=== PATIENT | female | born 1960 | race Caucasian/White ===

== ENCOUNTER 2019-02-15 11:29 | Emergency (ER) | payer SELFPAY ==
[~2019-02-15] VITALS: Ht 154.9 cm; Wt 59.0 kg
[2019-02-15 11:42] VITALS: BP 127/97
--- NOTE | 2019-02-15 12:15 | NUR ---
AFTER EXAM BY PA PT GIVEN DISCHARGE. TO WINDOW WITH SIGNIFICANT OTHER VIA W/C
== END 2019-02-15 12:34 | disposition home or self-care (01) ==
LOC: ED 12:33
DX: H60.12 Cellulitis of left external ear (principal); F10.220 Alcohol dependence with intoxication, uncomplicated; F17.200 Nicotine dependence, unspecified, uncomplicated
CPT/HCPCS: 99283

== ENCOUNTER 2019-03-14 17:53 | Emergency (ER) | payer SELFPAY ==
[~2019-03-14] VITALS: Ht 154.9 cm; Wt 60.0 kg
--- NOTE | 2019-03-14 18:06 | NUR ---
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 PER REPORT PT CALLED R/T ITCHING 2ND TO BED BUGS. NO BUGS WERE VISUALIZED BUT PT HAS "BITES ALL OVER. PER REPORT PT JAUNDICED. C/O R SIDE WEAKNESS (ARM) X2 WEEKS. INCREASED FALLS R/T WEAKNESS (GENERAL). HAS MULTIPLE AUTO IMMUNE DISEASES. NO MEDICATIONS AND PT REPORTS "ALLERGIES TO EVERYTHING". NO INTERVENTIONS BY EMS. PT TO DECON ROOM THEN TO ROOM 30. REPORT TO KRISTEN UREÑA
--- NOTE | 2019-03-14 18:25 | NUR ---
BIB [facility]. PT C/O COUGH FOR A FEW DAYS. FOUND LUMPS ON LEFT BREAST. JAUNDICE. HX BED BUGS. PT DECON PRIOR TO GOING TO ROOM. CONNECTED TO MONITORING. CALL LIGHT IN REACH. FRIEND AT BEDSIDE. MD AT BEDSIDE. AWAITING ORDERS AT THIS TIME.
[2019-03-14] MEDS ORDERED: hydrOXYzine 50 MG/ML IM ONE (19:00)
--- NOTE | 2019-03-14 19:20 | NUR ---
REQUESTED MED FROM PHARMACY. IM NOT IN OMNICELL.
[2019-03-14 19:50] VITALS: BP 108/79
--- NOTE | 2019-03-14 19:51 | NUR ---
MEDS ADMIN PER JUN. PT RESTING ON [employer] WATCHING TV.
--- NOTE | 2019-03-14 20:06 | NUR ---
ALL RESULTS ARE BACK AT THIS TIME. CHART UP FOR RECHECK.
== END 2019-03-14 21:13 | disposition home or self-care (01) ==
LOC: ED 18:41
DX: M25.511 Pain in right shoulder (principal)
CPT/HCPCS: 72125; 73030; 96372; 99284; J3410